=== PATIENT | female | born 1970 | race Caucasian/White ===

== ENCOUNTER 2017-11-28 01:21 | Observation (INO) | payer OTHER ==
[2017-11-28 03:07] LABS: Urine Blood 1+ (NEG); Urine Glucose NEGATIVE (NEG); Urine Protein NEGATIVE (NEG); Urine Specific Gravity <1.005 (1.005-1.030)
[2017-11-28 03:32] LABS: Absolute Monocytes 0.8 K/uL (0.1-1.3); Basophils % 0.7 % (0-1.3); Eosinophils % 1.5 % (0-4.4); Hematocrit 32.6 % (36.0-45.0); Lymphocytes % 15.6 % (15.3-44.8); MCH 20.7 pg (27.0-35.0); MCV 66.9 fL (80-100); MPV 8.6 fL (7.6-11.3); Monocytes % 6.4 % (3.3-12.3); RBC Red Blood Cell Count 4.87 M/uL (3.86-4.86)
[2017-11-28 03:45] LABS: Bicarbonate 26 mEq/L (21-31); Glucose Level 178 mg/dL (65-120); Lipase 35 U/L (22-51); Potassium 4.1 mEq/L (3.6-5.0); Sodium Level 135 mEq/L (135-145)
[2017-11-28] MEDS ORDERED: MORPHINE 4 MG/ML SYR ONE ×2 (03:46→06:56)
[2017-11-28] MEDS ORDERED: NA CHLORIDE 0.9% 1,000 ML ONE (03:47)
[2017-11-28] MEDS ORDERED: ONDANSETRON 4 MG/2 ML VIAL ONE (03:47)
[2017-11-28 03:52] LABS: ALT/SGPT 17 IU/L (10-60); AST/SGOT 24 IU/L (10-42); Albumin 3.9 g/dL (3.2-5.5); Alkaline Phosphatase 49 IU/L (42-121); Amylase Level 73 U/L (28-100); BUN Blood Urea Nitrogen 17 mg/dL (6-20); Bilirubin Direct 0.1 mg/dL (0-0.2); Bilirubin Total 0.6 mg/dL (0.3-1.2); Protein, Total 7.1 g/dL (6.0-8.3)
--- NOTE | 2017-11-28 06:36 | EDPHYS ---
Physician Documentation [facility] Name: Adelaide Acosta Age: 46 yrs Sex: Female : 1970 Arrival Date: 11/28/2017 Time: 01:29 Bed 6 Private MD: ED Physician Irving Nava HPI: 11/28 03:10 This 46 yrs old Female presents to ER via Ambulatory with complaints of pkl Abdominal Pain, Fever. 03:10 The patient presents with abdominal pain right lower quadrant. Onset: The pkl symptoms/episode began/occurred today, 9 hour(s) ago. The symptoms do not radiate. 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 - Social history:: Smoking status: Patient uses tobacco products, smokes one pack cigarettes per day. ROS: 03:10 Eyes: Negative for injury, pain, redness, and discharge, ENT: Negative for injury, pkl pain, and discharge, Neck: Negative for injury, pain, and swelling, Cardiovascular: Negative for chest pain, palpitations, and edema, Respiratory: Negative for shortness of breath, cough, wheezing, and pleuritic chest pain. 03:10 Abdomen/GI: Positive for abdominal pain, nausea, of the right lower quadrant. 03:10 Back: Negative for acute changes. 03:10 : Negative for urinary symptoms. 03:10 MS/extremity: Negative for acute changes. 03:10 Skin: Negative for rash. 03:10 Neuro: Negative for altered mental status. Exam: 03:10 Head/Face: Normocephalic, atraumatic. Eyes: Pupils equal round and reactive to light, pkl extra-ocular motions intact. Lids and lashes normal. Conjunctiva and sclera are non-icteric and not injected. Cornea within normal limits. Periorbital areas with no swelling, redness, or edema. ENT: Nares patent. No nasal discharge, no septal abnormalities noted. Tympanic membranes are normal and external auditory canals are clear. Oropharynx with no redness, swelling, or masses, exudates, or evidence of obstruction, uvula midline. Mucous membranes moist. Neck: Trachea midline, no thyromegaly or masses palpated, and no cervical lymphadenopathy. Supple, full range of motion without nuchal rigidity, or vertebral point tenderness. No Meningismus. Chest/axilla: Normal chest wall appearance and motion. Nontender with no deformity. No lesions are appreciated. Cardiovascular: Regular rate and rhythm with a normal S1 and S2. No gallops, murmurs, or rubs. Normal PMI, no JVD. No pulse deficits. Respiratory: Lungs have equal breath sounds bilaterally, clear to auscultation and percussion. No rales, rhonchi or wheezes noted. No increased work of breathing, no retractions or nasal flaring. 03:10 Abdomen/GI: Bowel sounds: normal, Palpation: soft, mild abdominal tenderness, in the right lower quadrant. 03:10 Back: Exam negative for acute changes. 03:10 : Exam negative for acute changes. 03:10 Musculoskeletal/extremity: Exam is negative for acute changes. 03:10 Skin: Exam negative for rash. 03:10 Neuro: Orientation: is normal, Mentation: is normal, Cranial nerves: grossly normal, Motor: is normal. Vital Signs: 02:02 BP 142 / 74; Pulse 105; Resp 20; Temp 98.6(O); Pulse Ox 98% on R/A; Weight 92.53 kg ak1 (R); Height 5 ft. 2 in. (157.48 cm) (R); Pain 5/10; 04:38 BP 100 / 62; Pulse 88; Resp 18; Pulse Ox 97% on R/A; ak1 05:09 BP 112 / 70; Pulse 88; Resp 18; Pulse Ox 97% on R/A; ak1 06:29 BP 119 / 82; Pulse 80; Resp 16; Temp 98.4; Pulse Ox 100% on R/A; Pain 0/10; ak1 06:51 BP 116 / 97; Pulse 77; Resp 16; Pulse Ox 97% on R/A; Pain 4/10; ak1 07:30 BP 122 / 78; Pulse 75; Resp 16; Temp 98.7; Pulse Ox 97% ; Pain 0/10; jl7 02:02 Body Mass Index 37.31 (92.53 kg, 157.48 cm) ak1 MDM: 01:57 Patient medically screened. pkl 06:14 Data reviewed: vital signs, nurses notes, lab test result(s), radiologic studies, CT pkl scan. 06:32 ED course: Talked to Dr. Fagan, admit, NPO and start antibiotics. pkl 11/28 01:30 Order name: Urine Culture snw 11/28 01:30 Order name: Urine Microscopic Only snw 11/28 02:21 Order name: Urine Dipstick--Ancillary (enter results); Complete Time: 05:06 em1 11/28 03:08 Order name: Amylase, Serum; Complete Time: 05:06 pkl 11/28 03:08 Order name: Basic Metabolic Panel; Complete Time: 05:06 pkl 11/28 03:08 Order name: CBC with Diff; Complete Time: 05:06 pkl 11/28 03:08 Order name: Creatinine for Radiology; Complete Time: 05:06 pkl 11/28 03:08 Order name: Hepatic Function; Complete Time: 05:06 pkl 11/28 03:08 Order name: Lipase; Complete Time: 05:06 pkl 11/28 03:10 Order name: CT Abd/Pelvis - W/Contrast pkl 11/28 06:31 Order name: XRAY CXR (1 view) pkl 11/28 06:49 Order name: Liver (Hepatic) Function EDMS 11/28 06:49 Order name: Liver (Hepatic) Function EDMS 11/28 01:30 Order name: Urine Dipstick-Ancillary (obtain specimen); Complete Time: 02:21 snw 11/28 03:08 Order name: IV Saline Lock; Complete Time: 03:51 pkl 11/28 03:08 Order name: Labs collected and sent; Complete Time: 03:51 pkl 11/28 06:31 Order name: EKG; Complete Time: 06:31 pkl Administered Medications: 03:40 Drug: morphine 2 mg Route: IVP; Site: right antecubital; ao 05:19 Follow up: Response: No adverse reaction ak1 03:51 Drug: Zofran 4 mg Route: IVP; Site: right antecubital; ao 05:19 Follow up: Response: No adverse reaction ak1 03:52 Drug: NS 0.9% 1000 ml Route: IV; Rate: 125 ml/hr; Site: left antecubital; ao 06:53 Drug: LevaQUIN 500 mg Volume: 100 ml; Route: IVPB; Infused Over: 60 mins; Site: right ao antecubital; 07:57 Follow up: IV Status: Completed infusion jl7 06:53 Drug: Flagyl 500 mg Volume: 100 ml; Route: IVPB; Rate: 200 ml/hr; Infused Over: 30 ao mins; Site: right antecubital; 07:57 Follow up: IV Status: Completed infusion jl7 07:00 Drug: morphine 2 mg Route: IVP; Site: right antecubital; ao 07:15 Follow up: Response: No adverse reaction; Pain is decreased jl7 Disposition: 11/28/17 06:35 Hospitalization ordered by Will Fagan for Observation. Preliminary diagnosis is Acute appendicitis. Cholelithiasis. - Bed requested for Telemetry/MedSurg (observation). - Status is Observation. jl7 - Condition is Stable. - Problem is new. - Symptoms are unchanged. UTI on Admission? No Signatures: Dispatcher [employer] EDMS Krissy Meredith RN RN Irving Hair MD MD pkl Rina Pineda, CONVEYOR WEIGHER OPERATOR-C CONVEYOR WEIGHER OPERATOR-Csnw Catherine Castanon RN LIZA ak1 Rui Martin, RN Milka Bunn RN RN jl7 Corrections: (The following items were deleted from the chart) 06:54 06:35 Hospitalization Ordered by Will Fagan MD for Observation. Preliminary kl diagnosis is Acute appendicitis. Cholelithiasis. Bed requested for Telemetry/MedSurg (observation). Status is Observation. Condition is Stable. Problem is new. Symptoms are unchanged. UTI on Admission? No. pkl 07:56 06:54 11/28/2017 06:35 Hospitalization Ordered by Will Fagan MD for Observation. jl7 Preliminary diagnosis is Acute appendicitis. Cholelithiasis. Bed requested for Telemetry/MedSurg (observation). Status is Observation. Condition is Stable. Problem is new. Symptoms are unchanged. UTI on Admission? No. kl
--- NOTE | 2017-11-28 06:36 | ER ---
Nurse's Notes [facility] Name: Adelaide Acosta Age: 46 yrs Sex: Female : 1970 Arrival Date: 11/28/2017 Time: 01:29 Bed 6 Private MD: Diagnosis: Acute appendicitis. Cholelithiasis Presentation: 11/28 02:02 Presenting complaint: Patient states: lower right quadrant pain since 1830. pt has been ak1 constipated had BM today. pt took 1 gram Tylenol at 2330. pt with hx lower abd hernia. pt with hx colon resection. pt c/o nausea. Transition of care: patient was not received from another setting of care. Onset of symptoms was November 27, 2017. Initial Sepsis Screen: Does the patient meet any 2 criteria? No. Patient's initial sepsis screen is negative. Does the patient have a suspected source of infection? No. Patient's initial sepsis screen is negative. Care prior to arrival: None. 02:02 Method Of Arrival: Ambulatory ak1 02:02 Acuity: MINNIE 3 ak1 Triage Assessment: 02:06 General: Appears in no apparent distress. Behavior is calm, cooperative. Pain: ak1 Complains of pain in right lower quadrant. EENT: No deficits noted. Neuro: No deficits noted. Cardiovascular: No deficits noted. Respiratory: No deficits noted. GI: Abdomen is round Bowel sounds present X 4 quads. Abd is soft X 4 quads Abdomen is tender to palpation in right lower quadrant Reports nausea. : No signs and/or symptoms were reported regarding the genitourinary system. Derm: No signs and/or symptoms reported regarding the dermatologic system. Musculoskeletal: No signs and/or symptoms reported regarding the musculoskeletal system. CONSULTING DATABASE ADMINISTRATOR: 02:02 LMP 11/28/2017 ak1 Historical: - Allergies: 02:06 Ampicillin; ak1 02:06 Reglan; ak1 - Home Meds: 02:06 easytime [Active]; metformin 500 mg Oral tab 1 tab 2 times per day [Active]; ak1 - PMHx: 02:06 Diabetes - NIDDM; High Cholesterol; ak1 - PSHx: 02:06 colon resection; ; ak1 - Immunization history:: Adult Immunizations unknown. - Social history:: Smoking status: Patient uses tobacco products, smokes one pack cigarettes per day. Screenin:07 Abuse screen: Denies threats or abuse. Denies injuries from another. Nutritional ak1 screening: No deficits noted. Tuberculosis screening: No symptoms or risk factors identified. Fall Risk None identified. Assessment: 03:46 Reassessment: Patient appears in no apparent distress at this time. No changes from ak1 previously documented assessment. see triage assessment. 03:46 Reassessment: pt finished oral contrast at 0330, painting technician notified . ak1 07:15 Reassessment: Patient and/or family updated on plan of care and expected duration. Pain jl7 level reassessed. Patient is alert, oriented x 3, equal unlabored respirations, skin warm/dry/pink. Patient states feeling better. Vital Signs: 02:02 BP 142 / 74; Pulse 105; Resp 20; Temp 98.6(O); Pulse Ox 98% on R/A; Weight 92.53 kg ak1 (R); Height 5 ft. 2 in. (157.48 cm) (R); Pain 5/10; 04:38 BP 100 / 62; Pulse 88; Resp 18; Pulse Ox 97% on R/A; ak1 05:09 BP 112 / 70; Pulse 88; Resp 18; Pulse Ox 97% on R/A; ak1 06:29 BP 119 / 82; Pulse 80; Resp 16; Temp 98.4; Pulse Ox 100% on R/A; Pain 0/10; ak1 06:51 BP 116 / 97; Pulse 77; Resp 16; Pulse Ox 97% on R/A; Pain 4/10; ak1 07:30 BP 122 / 78; Pulse 75; Resp 16; Temp 98.7; Pulse Ox 97% ; Pain 0/10; jl7 02:02 Body Mass Index 37.31 (92.53 kg, 157.48 cm) ak1 ED Course: 01:29 Patient arrived in ED. al2 01:57 Irving Nava MD is Attending Physician. pkl 02:01 Catherine Castanon, LIZA is Primary Nurse. ak1 02:04 Triage completed. ak1 02:06 Arm band placed on Patient placed in an exam room, on a stretcher, on pulse oximetry, ak1 Patient notified of wait time. 02:07 Patient has correct armband on for positive identification. Bed in low position. Call ak1 light in reach. Side rails up X 1. Adult w/ patient. Pulse ox on. NIBP on. 03:00 No provider procedures requiring assistance completed. Inserted saline lock: 20 gauge ak1 in right antecubital area, using aseptic technique. ,using aseptic technique. placed by Rui Castro RN Blood collected. 05:19 CT Abd/Pelvis - W/Contrast Sent. ak1 05:31 CT Abd/Pelvis - W/Contrast In Process Unspecified. EDMS 06:34 Will Fagan MD is Hospitalizing Provider. pkl 06:42 XRAY CXR (1 view) In Process Unspecified. EDMS 07:56 Patient admitted, IV remains in place. intact, No redness/swelling at site. jl7 Administered Medications: 03:40 Drug: morphine 2 mg Route: IVP; Site: right antecubital; ao 05:19 Follow up: Response: No adverse reaction ak1 03:51 Drug: Zofran 4 mg Route: IVP; Site: right antecubital; ao 05:19 Follow up: Response: No adverse reaction ak1 03:52 Drug: NS 0.9% 1000 ml Route: IV; Rate: 125 ml/hr; Site: left antecubital; ao 06:53 Drug: LevaQUIN 500 mg Volume: 100 ml; Route: IVPB; Infused Over: 60 mins; Site: right ao antecubital; 07:57 Follow up: IV Status: Completed infusion jl7 06:53 Drug: Flagyl 500 mg Volume: 100 ml; Route: IVPB; Rate: 200 ml/hr; Infused Over: 30 ao mins; Site: right antecubital; 07:57 Follow up: IV Status: Completed infusion jl7 07:00 Drug: morphine 2 mg Route: IVP; Site: right antecubital; ao 07:15 Follow up: Response: No adverse reaction; Pain is decreased jl7 Outcome: 06:35 Decision to Hospitalize by Provider. pkl 07:56 Admitted to Med/surg accompanied by tech, family with patient, via wheelchair, room jl7 230, with chart, Report called to LIZA Chun 07:56 Condition: stable 07:56 Discharge instructions given to patient, Instructed on the need for admit, Demonstrated understanding of instructions. 07:56 Patient left the ED. jl7 Signatures: Dispatcher [employer] EDAK Irving Nava MD MD pkCatherine Spangler RN RN ak1 Rui Martin, RN RN ao Sorin, Milka, RN RN jl7 Robyn Higuera
[2017-11-28] MEDS ORDERED: ACETAMINOPHEN 500 MG TAB PO PRN (06:41)
[2017-11-28] MEDS ORDERED: Levofloxacin500mg IV 500 MG/100 ML BAG IV ONE (06:46)
[2017-11-28] MEDS ORDERED: METRONIDAZOLE 500mg IVPB 500 MG/100 ML BAG IV ONE (06:46)
[2017-11-28] MEDS ORDERED: NA CHLORIDE 0.9% 1,000 ML IV SCH (07:00)
[2017-11-28] MEDS ORDERED: Morphine 2 MG/2 ML SYR IV PRN (07:08)
[2017-11-28 08:06] VITALS: O2SAT 97
[2017-11-28 10:54] VITALS: BMI 37.3
--- NOTE | 2017-11-28 11:34 | RAD REPORT ---
EXAM DESCRIPTION: CTAbdomen Pelvis W Contrast - 11/28/2017 6:42 am CLINICAL HISTORY: Abdominal pain. COMPARISON: None. TECHNIQUE: Biphasic CT imaging of the abdomen and pelvis was performed with 100 ml non-ionic IV cont rast. All CT scans are performed using dose optimization technique as appropriate and may include automated exposure control or mA/KV adjustment according to patient size. FINDINGS: The lung bases are clear.Cholelithiasis. The liver, spleen, pancreas, adrenal glands and kidneys are within normal limits. Small supraumbilica l fat containing ventral hernia is present. Moderate to large fat containing lower abdominal ventral hernia present with a 6 cm gap between the rectus musculature noted. No bowel obstruction, free air, free fluid or abscess. The appendix appears thickened and dilated to 10 mm. Periappendiceal fat is hazy. No evidence of significant lymphadenopathy. No suspicious bony findings. IMPRESSION: Acute appendicitis is suspected.
[2017-11-28] MEDS ORDERED: METRONIDAZOLE 500mg IVPB 500 MG/100 ML BAG IV SCH (12:00)
--- NOTE | 2017-11-28 12:14 | RAD REPORT ---
EXAM DESCRIPTION: RAD - Chest Single View - 11/28/2017 6:50 am CLINICAL HISTORY: Chest pain. COMPARISON: None. FINDINGS: Portable technique limits examination quality. The lungs are grossly clear. The heart is normal in size. No displaced fractures. IMPRESSION: No acute intrathoracic process suspected.
[2017-11-28 17:50] VITALS: BP 114/66; TEMP 98.1
--- NOTE | 2017-11-28 18:37 | HP ---
Date of Admission: 11/28/2017 Reason For Service: Abdominal pain. History Of Present Illness: This is the case of a 46-year-old with a history of colorectal cancer ab out 20 years ago when she was in her 20s. She has been on and off having some pain and discomfort. She had multiple hernias in abdomen, and then comes today with abdominal pain, a little different leslie n before, mainly located in the right side of the abdomen. No dysuria, hematuria, hematochezia, or m dustin. No recent traveling out of the country. No family members sick at home. She has a colonosco py several years ago, but she claimed was okay. Her colorectal surgery is no longer working. This w as done about 20 years ago. She cannot explain what cancer she had. She stated it was colorectum, h nataliia to say which segment of the bowel was removed. She believe this was descending colon and part of the rectum. She also lost contact with her oncologist and we have no documentation of the previous surgeries and the extent of it. When we did a CAT scan at this time we noticed some thickening of th e right lower quadrant. They are not sure if there is appendix thickening and dilatation is really n ot although it is always suspected. I discussed the case with the radiologist myself. Past Medical History: Colon cancer. Surgeries include colon resection and dissection. Past Medical History: Diabetes, non-insulin dependent; high cholesterol, morbid obesity, ventral her reggie. Allergies: AMPICILLIN AND REGLAN. Medications: Include metformin. Family History: Father with history of colon cancer. She does not smoke. She does not drink alcoho l. Review of Systems: Constitution: Denies any fever, any chills. Respiratory: Denies any shortness of breath cast. Genitourinary: Denies any dysuria or hematuria. Gastrointestinal: As above. Physical Examination: General: The patient is awake and alert. HEENT: Pupils are equal and reactive, anicteric. Neck: Supple. Chest: Clear. Abdomen: Soft and depressible. No guarding. No peritonitis, but she has mild pelvic and right lowe r quadrant tenderness. Rectal, Pelvic, Breast: Deferred Extremities: Good capillary refill. Laboratory Data: Blood work shows a WBC count of 13.1 with a hemoglobin of 10.1, potassium is 4.1 wi th a UA negative for blood. Diagnostic Data: CAT scan of abdomen and pelvis was reviewed and the chart reviewed also with the ra diologist. There are some findings in the right lower quadrant, a dilated more than usual appendix f rom some that could be called thickening of the appendix. He did not see any obstruction. Did not s ee any tumor in that area. On there is previous surgeries that is hard for us to pinpoint exactly ho w much bowel was removed. She has a large ventral hernias present, multiple incisional. Assessment: This is a 46-year-old patient with a history of colorectal cancer. Her family also had colorectal cancer, father itself. She had done surgery few days ago. It was in unusual presentation . I discussed the case with Dr. Young, Colorectal Surgery at [facility]. Even though this maybe looke d like a simple appendix, still we have a patient with history of colorectal disease and strong famil y history with parents with colorectal disease, and that was which was found in the unusual way. At this time, if we go in the belly and we cannot do this laparoscopically, it has to be opened, and if we find any a colorectal cancer, I believe she will be in the wrong place to have that done. I belie ve she needs a tertiary center with a lot of help just in case that remote possibility is encountered . I discussed that with the patient, and I also discussed that with the colorectal, and we believe s he is safer and the family is very happy that she is going to be going to a tertiary center since las t time she had surgery a that was supposed to be simple, found out to have colon cancer and that crea mariola a lot of stress in the family, and especially now that we have a situation once again not clear a nd they feels safer with the colorectal service taking care of her. In that case then we are going to bring this patient to a higher level of care with colorectal at [facility], and Dr. Young kindly accepted the patient. MIKE/PIPPA Voice ID: [id number]
--- NOTE | 2017-11-29 06:56 | EKG ---
Test Date: 2017-11-28 Test Time: 06:41:26 Speed Belt Sander: JOSE MEASUREMENT RESULTS: Intervals: Rate: 83 SD: 118 QRSD: 78 QT: 408 QTc: 479 [place]: P: 20 SD: 118 QRS: 43 T: 44 INTERPRETIVE STATEMENTS: Normal sinus rhythm Normal ECG No previous ECG available for comparison Electronically Signed On 11-29-17 06:53:53 CDT by Demetrio Thomas
[2017-11-29] MEDS ORDERED: Levofloxacin500mg IV 500 MG/100 ML BAG IV SCH (07:00)
== END 2017-11-28 16:09 | disposition short-term general hospital (02) ==
LOC: ER 01:21 → ERHOLD 06:38 → 2ND 07:39
PROVIDERS: ADMIT Surgery; ATTEND Surgery
DX: R10.9 Unspecified abdominal pain (principal); E11.9 Type 2 diabetes mellitus without complications; E66.01 Morbid (severe) obesity due to excess calories; Z68.37 Body mass index [BMI] 37.0-37.9, adult; K43.2 Incisional hernia without obstruction or gangrene; Z85.038 Personal history of other malignant neoplasm of large intestine; Z88.0 Allergy status to penicillin
CPT/HCPCS: 36415; 71045; 74177; 80048; 80076; 81003; 82150; 82962; 83690; 85025; 93005; 96365; 96368; 96375; 99285; G0378; J2270; J2405; J7030; Q9967

== ENCOUNTER 2019-07-24 18:35 | Emergency (ER) | payer OTHER ==
[2019-07-24 19:48] LABS: ALT/SGPT 28 U/L (12-78); AST/SGOT 12 U/L (15-37); Albumin 3.4 g/dL (3.4-5.0); Alkaline Phosphatase 84 U/L (45-117); BUN Blood Urea Nitrogen 9 mg/dL (7-18); Bicarbonate 27 mmol/L (21-32); Bilirubin Direct 0.1 mg/dL (0-0.2); Bilirubin Total 0.3 mg/dL (0.2-1.0); Glucose Level 270 mg/dL (74-106); Lipase 170 U/L (73-393); NT PRO-BNP 43 pg/mL (<125); Potassium 3.8 mmol/L (3.5-5.1); Protein, Total 7.5 g/dL (6.4-8.2); Sodium Level 136 mmol/L (136-145); Troponin (Emerg Dept Use Only) < 0.02 ng/mL (0.0-0.045)
[2019-07-24] MEDS ORDERED: MORPHINE 4 MG/ML SYR ONE (19:48)
[2019-07-24] MEDS ORDERED: ONDANSETRON 4 MG/2 ML VIAL ONE (19:48)
[2019-07-24] MEDS ORDERED: NA CHLORIDE 0.9% 1,000 ML ONE (19:48)
[2019-07-24 19:53] LABS: Basophils % 0.6 % (0-1.3); Hematocrit 31.6 % (36.0-45.0); Lymphocytes % 30.1 % (15.3-44.8); MPV 8.8 fL (7.6-11.3); RBC Red Blood Cell Count 5.07 M/uL (3.86-4.86)
[2019-07-24 20:04] LABS: Protime INR 0.96
[2019-07-24 20:30] LABS: Urine Blood TRACE (NEG); Urine Glucose 2+ (NEG); Urine Protein NEGATIVE (NEG); Urine pH 7.5 (5.0-7.0)
--- NOTE | 2019-07-24 20:50 | RAD REPORT ---
EXAM DESCRIPTION: Samuel Single View07/24/2019 7:37 pm CLINICAL HISTORY: Abdominal pain COMPARISON: 2017 FINDINGS: The lungs appear clear of acute infiltrate. The heart is normal size IMPRESSION: No acute abnormalities displayed
[2019-07-24 21:28] LABS: Anisocytosis 2+; Blood Morphology Comment NOTED (NOT SEEN); Hypochromasia 2+; Ovalocytes 1+; Platelet Estimate ADEQ; Poikilocytosis 1+; Polychromasia SLIGHT; Urine White Blood Cell Casts OK
--- NOTE | 2019-07-24 22:54 | ER ---
Nurse's Notes [facility] Name: Adelaide Acosta Age: 48 yrs Sex: Female : 1970 Arrival Date: 07/24/2019 Time: 18:39 Bed 18 Private MD: Diagnosis: Abdominal tenderness;Constipation;Ventral hernia;Ventral hernia without obstruction or gangrene Presentation: 07/24 18:46 Presenting complaint: Patient states: GI doctor with [facility] instructed her sg to come to an ER for evaluation due to pain in the right lower abdomen, reports having pain for 1-2 days, reports pain is stabbing feels like an ovarian rupture but unsure. Transition of care: patient was not received from another setting of care. Onset of symptoms was July 24, 2019. Risk Assessment: Do you want to hurt yourself or someone else? Patient reports no desire to harm self or others. Initial Sepsis Screen: Does the patient meet any 2 criteria? Does the patient have a suspected source of infection? No. Patient's initial sepsis screen is negative. Care prior to arrival: None. 18:46 Acuity: MINNIE 3 sg 18:46 Method Of Arrival: Ambulatory sg 18:46 Acuity: MINNIE 3 sg Triage Assessment: 18:46 General: Appears in no apparent distress. uncomfortable, well groomed, well developed, sg well nourished, Behavior is calm, cooperative, appropriate for age. Pain: Complains of pain in right lower quadrant Quality of pain is described as aching, sharp. EENT: No signs and/or symptoms were reported regarding the EENT system. Neuro: Level of Consciousness is awake, alert, obeys commands, Oriented to person, place, time, Induction Heat Treater are equal bilaterally Speech is normal, Facial symmetry appears normal. Cardiovascular: Patient's skin is warm and dry. Chest pain is denied. Respiratory: Airway is patent Respiratory effort is even, unlabored, Respiratory pattern is regular, symmetrical. GI: Abdomen is round non-distended, Reports tolerance of fluids, tolerance of food. : No signs and/or symptoms were reported regarding the genitourinary system. Derm: Skin is pink, warm \T\ dry. Musculoskeletal: Circulation, motion, and sensation intact. Range of motion: intact in all extremities. 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 - Social history:: Smoking status: Patient uses tobacco products. - Ebola Screening: : Patient negative for fever greater than or equal to 101.5 degrees Fahrenheit, and additional compatible Ebola Virus Disease symptoms Patient denies exposure to infectious person Patient denies travel to an Ebola-affected area in the 21 days before illness onset No symptoms or risks identified at this time. - Family history:: not pertinent. Screenin:00 Abuse screen: Denies threats or abuse. Nutritional screening: No deficits noted. vc Tuberculosis screening: No symptoms or risk factors identified. Fall Risk No fall in past 12 months (0 pts). IV access (20 points). Ambulatory Aid- None/Bed Rest/Nurse Assist (0 pts). Mental Status- Oriented to own ability (0 pts). Total Epstein Fall Scale indicates No Risk (0-24 pts). Assessment: 19:30 GI: Bowel sounds Abd is soft Abdomen is tender to palpation. vc 19:30 General: Appears in no apparent distress. comfortable, Behavior is calm, cooperative. vc Pain: Complains of pain in abdomen Pain currently is 3 out of 10 on a pain scale. Neuro: No deficits noted. Level of Consciousness is awake, alert, obeys commands, Oriented to person, place, time. Cardiovascular: Capillary refill < 3 seconds Patient's skin is warm and dry. Respiratory: Airway is patent Respiratory effort is even, unlabored. : No signs and/or symptoms were reported regarding the genitourinary system. EENT: No deficits noted. Derm: Skin is healthy with good turgor. Musculoskeletal: Range of motion: intact in all extremities. 20:30 Reassessment: Patient is alert, oriented x 3, equal unlabored respirations, skin vc warm/dry/pink. Patient denies pain at this time. 21:25 Reassessment: Patient to CT via wheelchair. vc 21:43 Reassessment: Back from CT. vc 22:30 Reassessment: Patient and/or family updated on plan of care and expected duration. Pain vc level reassessed. Patient is alert, oriented x 3, equal unlabored respirations, skin warm/dry/pink. 23:30 Reassessment: Patient given pain medication to help with pain on ride home, patients vc friend at bedside to give patient ride home. Vital Signs: 18:50 BP 155 / 86; Pulse 98; Resp 18; Temp 98.0; Pulse Ox 100% on R/A; Pain 10/10; sg 19:30 BP 154 / 92; Pulse 96; Resp 18; Pulse Ox 100% on R/A; Pain 3/10; vc 20:15 BP 126 / 86; Pulse 88; Resp 18; Pulse Ox 99% on R/A; Pain 5/10; vc 21:00 BP 138 / 82; Pulse 91; Resp 18; Pulse Ox 100% on R/A; Pain 3/10; vc 22:00 BP 119 / 49; Pulse 99; Resp 16; Pulse Ox 99% on R/A; Pain 3/10; vc 23:00 BP 114 / 54; Pulse 96; Resp 18; Temp 98.8(TE); Pulse Ox 99% on R/A; Pain 0/10; vc ED Course: 18:39 Patient arrived in ED. mr 18:46 Arm band placed on. sg 18:50 Triage completed. sg 19:00 J Luis Hutchison MD is Attending Physician. [facility] 19:00 Patient has correct armband on for positive identification. Bed in low position. Call vc light in reach. 19:16 Inserted saline lock: 20 gauge in right antecubital area, using aseptic technique. mw2 Blood collected. 19:37 XRAY Chest (1 view) In Process Unspecified. EDMS 20:39 Bertha Camp, RN is Primary Nurse. vc 22:07 CT Abd/Pelvis - PO and IV Contrast In Process Unspecified. EDMS 23:46 No provider procedures requiring assistance completed. IV discontinued, intact, vc bleeding controlled, No redness/swelling at site. Pressure dressing applied. Administered Medications: 20:15 Drug: NS 0.9% 1000 ml Route: IV; Rate: 1 bolus; Site: right forearm; vc 23:30 Drug: morphine 4 mg Route: IVP; Site: right antecubital; vc 23:35 Follow up: Response: No adverse reaction; Pain is decreased vc 23:30 Drug: Zofran 4 mg Route: IVP; Site: right forearm; vc 23:35 Follow up: Response: No adverse reaction; Pain is decreased vc Outcome: 22:53 Discharge ordered by . manny 23:46 Discharged to home ambulatory. vc 23:46 Condition: improved 23:46 Discharge instructions given to patient, friend, Instructed on discharge instructions, follow up and referral plans. no drinking with medication, medication usage, Demonstrated understanding of instructions, follow-up care, medications, Prescriptions given X 3. 23:47 Patient left the ED. vc Signatures: Dispatcher [employer] EDMS Gab Ball, RN RN J Luis Arias MD MD cha Rivera, Mary mr Vinay, Katya mw2 Bertha Camp RN RN
--- NOTE | 2019-07-24 22:54 | EDPHYS ---
Physician Documentation [facility] Name: Adelaide Acosta Age: 48 yrs Sex: Female : 1970 Arrival Date: 07/24/2019 Time: 18:39 Bed 18 Private MD: ED Physician J Luis Hutchison HPI: 07/24 20:03 This 48 yrs old Female presents to ER via Ambulatory with complaints of manny Abdominal Pain. 20:03 The patient presents with abdominal pain in the lower abdomen, right lower quadrant, manny abdominal distention in the upper abdomen, in the lower abdomen. Onset: The symptoms/episode began/occurred 2 day(s) ago. The symptoms do not radiate. Associated signs and symptoms: none. The symptoms are described as constant, crampy, stabbing. Modifying factors: The symptoms are alleviated by nothing, remaining still, the symptoms are aggravated by movement, pressure. Severity of pain: At its worst the pain was moderate in the emergency department the pain is unchanged. The patient has not experienced similar symptoms in the past. 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 - Social history:: Smoking status: Patient uses tobacco products. - Ebola Screening: : Patient negative for fever greater than or equal to 101.5 degrees Fahrenheit, and additional compatible Ebola Virus Disease symptoms Patient denies exposure to infectious person Patient denies travel to an Ebola-affected area in the 21 days before illness onset No symptoms or risks identified at this time. - Family history:: not pertinent. ROS: 20:03 Constitutional: Negative for fever, chills, and weight loss, Eyes: Negative for injury, manny pain, redness, and discharge, ENT: Negative for injury, pain, and discharge, Neck: Negative for injury, pain, and swelling, Cardiovascular: Negative for chest pain, palpitations, and edema, Respiratory: Negative for shortness of breath, cough, wheezing, and pleuritic chest pain, Back: Negative for injury and pain, : Negative for injury, bleeding, discharge, and swelling, MS/Extremity: Negative for injury and deformity, Skin: Negative for injury, rash, and discoloration, Neuro: Negative for headache, weakness, numbness, tingling, and seizure, Psych: Negative for depression, anxiety, suicide ideation, homicidal ideation, and hallucinations, Allergy/Immunology: Negative for hives, rash, and allergies, Endocrine: Negative for neck swelling, polydipsia, polyuria, polyphagia, and marked weight changes, Hematologic/Lymphatic: Negative for swollen nodes, abnormal bleeding, and unusual bruising. 20:03 Abdomen/GI: Positive for abdominal pain, constipation, abdominal distension, of the right lower quadrant. Exam: 20:03 Constitutional: This is a well developed, well nourished patient who is awake, alert, manny and in no acute distress. Head/Face: Normocephalic, atraumatic. Eyes: Pupils equal round and reactive to light, extra-ocular motions intact. Lids and lashes normal. Conjunctiva and sclera are non-icteric and not injected. Cornea within normal limits. Periorbital areas with no swelling, redness, or edema. ENT: Nares patent. No nasal discharge, no septal abnormalities noted. Tympanic membranes are normal and external auditory canals are clear. Oropharynx with no redness, swelling, or masses, exudates, or evidence of obstruction, uvula midline. Mucous membranes moist. Neck: Trachea midline, no thyromegaly or masses palpated, and no cervical lymphadenopathy. Supple, full range of motion without nuchal rigidity, or vertebral point tenderness. No Meningismus. Chest/axilla: Normal chest wall appearance and motion. Nontender with no deformity. No lesions are appreciated. Cardiovascular: Regular rate and rhythm with a normal S1 and S2. No gallops, murmurs, or rubs. Normal PMI, no JVD. No pulse deficits. Respiratory: Lungs have equal breath sounds bilaterally, clear to auscultation and percussion. No rales, rhonchi or wheezes noted. No increased work of breathing, no retractions or nasal flaring. Back: No spinal tenderness. No costovertebral tenderness. Full range of motion. Female : Normal external genitalia. Skin: Warm, dry with normal turgor. Normal color with no rashes, no lesions, and no evidence of cellulitis. MS/ Extremity: Pulses equal, no cyanosis. Neurovascular intact. Full, normal range of motion. Neuro: Awake and alert, GCS 15, oriented to person, place, time, and situation. Cranial nerves II-XII grossly intact. Motor strength 5/5 in all extremities. Sensory grossly intact. Cerebellar exam normal. Normal gait. 20:03 Abdomen/GI: Inspection: distension, that is moderate, Bowel sounds: active, Palpation: moderate abdominal tenderness, in the right lower quadrant, Liver: no appreciated palpable abnormalities, Hernia: not appreciated. Vital Signs: 18:50 BP 155 / 86; Pulse 98; Resp 18; Temp 98.0; Pulse Ox 100% on R/A; Pain 10/10; sg 19:30 BP 154 / 92; Pulse 96; Resp 18; Pulse Ox 100% on R/A; Pain 3/10; vc 20:15 BP 126 / 86; Pulse 88; Resp 18; Pulse Ox 99% on R/A; Pain 5/10; vc 21:00 BP 138 / 82; Pulse 91; Resp 18; Pulse Ox 100% on R/A; Pain 3/10; vc 22:00 BP 119 / 49; Pulse 99; Resp 16; Pulse Ox 99% on R/A; Pain 3/10; vc 23:00 BP 114 / 54; Pulse 96; Resp 18; Temp 98.8(TE); Pulse Ox 99% on R/A; Pain 0/10; vc MDM: 19:00 Patient medically screened. [facility] 20:06 Data reviewed: vital signs, nurses notes, lab test result(s), EKG, radiologic studies, [facility] CT scan, plain films. 07/24 19:05 Order name: Basic Metabolic Panel; Complete Time: 20:01 [facility] 07/24 19:05 Order name: CBC with Diff; Complete Time: 22:06 [facility] 07/24 19:05 Order name: LFT's; Complete Time: 20:01 [facility] 07/24 19:05 Order name: Magnesium; Complete Time: 20:01 [facility] 07/24 19:05 Order name: NT PRO-BNP; Complete Time: 20:01 [facility] 07/24 19:05 Order name: PT-INR; Complete Time: 20:44 [facility] 07/24 19:05 Order name: Troponin (emerg Dept Use Only); Complete Time: 20:01 [facility] 07/24 19:05 Order name: XRAY Chest (1 view); Complete Time: 22:06 [facility] 07/24 19:05 Order name: Lipase; Complete Time: 20:01 [facility] 07/24 19:05 Order name: CT Abd/Pelvis - PO and IV Contrast [facility] 07/24 19:27 Order name: Urine Dipstick--Ancillary (enter results); Complete Time: 20:44 [facility] 07/24 19:27 Order name: Urine --Ancillary (enter results); Complete Time: 20:44 [facility] 07/24 21:29 Order name: CBC Smear Scan; Complete Time: 22:06 [facility] 07/24 19:05 Order name: EKG; Complete Time: 19:06 [facility] 07/24 19:05 Order name: Cardiac monitoring; Complete Time: 19:31 [facility] 07/24 19:05 Order name: EKG - Nurse/Tech; Complete Time: 19:31 [facility] 07/24 19:05 Order name: IV Saline Lock; Complete Time: 19:28 [facility] 07/24 19:05 Order name: Labs collected and sent; Complete Time: 19:31 [facility] 07/24 19:05 Order name: O2 Per Protocol; Complete Time: 19:31 [facility] 07/24 19:05 Order name: O2 Sat Monitoring; Complete Time: 19:32 [facility] 07/24 19:05 Order name: Urine Dipstick-Ancillary (obtain specimen); Complete Time: 19:25 [facility] 07/24 19:05 Order name: Urine Test (obtain specimen); Complete Time: 19:24 [facility] Administered Medications: 20:15 Drug: NS 0.9% 1000 ml Route: IV; Rate: 1 bolus; Site: right forearm; vc 23:30 Drug: morphine 4 mg Route: IVP; Site: right antecubital; vc 23:35 Follow up: Response: No adverse reaction; Pain is decreased vc 23:30 Drug: Zofran 4 mg Route: IVP; Site: right forearm; vc 23:35 Follow up: Response: No adverse reaction; Pain is decreased vc Disposition: 07/24/19 22:53 Discharged to Home. Impression: Abdominal tenderness, Constipation, Ventral hernia, Ventral hernia without obstruction or gangrene. - Condition is Stable. - Discharge Instructions: Abdominal Pain, Adult, Constipation, Adult, Constipation, Adult, [id number], Abdominal Pain, Adult, [id number], Ventral Hernia. - Prescriptions for Bentyl 20 mg Oral Tablet - take 1 tablet by ORAL route every 6 hours As needed; 20 tablet. Colace 100 mg Oral Tablet - take 1 tablet by ORAL route every 12 hours; 14 tablet. Tylenol- Codeine #3 300-30 mg Oral Tablet - take 2 tablets by ORAL route every 6 hours As needed; 20 tablet. - Medication Reconciliation Form, Thank You Letter, Antibiotic Education, Prescription Opioid Use form. - Follow up: Private Physician; When: 2 - 3 days; Reason: Recheck today's complaints, Continuance of care, Re-evaluation by your physician. - Problem is new. - Symptoms have improved. Signatures: Dispatcher [employer] EDMS Gab Ball RN RN J Luis Arias MD MD cha Calcote, Vanessa, RN RN vc Corrections: (The following items were deleted from the chart) 23:47 22:53 07/24/2019 22:53 Discharged to Home. Impression: Abdominal tenderness; vc Constipation; Ventral hernia; Ventral hernia without obstruction or gangrene. Condition is Stable. Forms are Medication Reconciliation Form, Thank You Letter, Antibiotic Education, Prescription Opioid Use. Follow up: Private Physician; When: 2 - 3 days; Reason: Recheck today's complaints, Continuance of care, Re-evaluation by your physician. Problem is new. Symptoms have improved. manny
[2019-07-25 01:49] VITALS: BP 155/86; TEMP 98; O2SAT 100
--- NOTE | 2019-07-25 14:07 | EKG ---
Test Date: 2019-07-24 Test Time: 19:38:08 Varnish Melter Helper: APRIL MEASUREMENT RESULTS: Intervals: Rate: 96 WV: 128 QRSD: 76 QT: 362 QTc: 457 [place]: P: 57 WV: 128 QRS: 97 T: 30 INTERPRETIVE STATEMENTS: Normal sinus rhythm Possible Left atrial enlargement Rightward axis Cannot rule out Anterior infarct, age undetermined Abnormal ECG Compared to ECG 11/28/2017 06:41:26 Right-axis deviation now present Myocardial infarct finding now present Electronically Signed On 07-25-19 14:06:07 REGISTRATION REPRESENTATIVE by Demetrio Thomas
--- NOTE | 2019-07-27 12:27 | RAD REPORT ---
EXAM DESCRIPTION: CT - Abdomen Pelvis W Contrast - 07/24/2019 11:09 pm - Abdomen Pelvis W Contrast CLINICAL HISTORY: Right lower quadrant pain. TECHNIQUE: CT scan of the abdomen and pelvis was performed with oral and intravenous contrast. 5 mm arterial phase images of the abdomen were obtained. 5 mm venous phase axial images of the abdomen and pelvis were obtained along with coronal and sagitta l reformatted images. DOSE OPTIMIZATION: This facility uses dose optimization techniques as appropriate to perform exams, including at least one of the following techniques: 1. Automated exposure control. 2. Adjustment of the mA and/or kV according to patient size (this includes techniques or standardized protocols for targeted exams where dose is matched to the indication/reason for exam, i.e. extremiti es or head). 3. Use of iterative reconstructive technique. INTRAVENOUS AND ORAL CONTRAST: Not documented. Please refer to medical record. COMPARISON: 11/28/2017. FINDINGS: Lung Bases: Normal. Liver: Normal. Spleen: Normal. Pancreas: Normal. Gallbladder: Normal. Adrenal Glands: Normal. Kidneys: Normal. Retroperitoneal Structures: Normal. Bowel Survey: There is increased stool throughout the colon. The distal ileum and the appendix are un remarkable. Uterus and Adnexa: Normal. Urinary Bladder: Normal. Peritoneal Cavity: Normal. Mesenteric Structures: Normal. Abdominal Wall: There is a large midline ventral hernia containing fat in the anterior pelvic wall just inferior to t he umbilicus which is stable. The fascial defect measures 6.3 x 6.0 cm in maximal transverse and longitudinal dimensions respective ly. There is a series of 3 small ventral midline hernias in the anterior abdominal wall superior to the u mbilicus containing fat. The most superior hernia arises a cm above the umbilicus. The most inferior hernia arises 4 cm above the umbilicus. Bony Structures: No suspicious lesions. There is severe facet arthropathy bilaterally at L4-L5 and L5-S1. IMPRESSION: 1. Increased stool throughout the colon. 2. 3 small abdominal wall ventral hernias 1 large pelvic wall ventral hernia, stable. Electronically signed by: Dimitri Cummins MD 07/24/2019 10:22 PM AUTOMOTIVE ALIGNMENT SPECIALIST Due to temporary technical issues with the PACS/Fluency reporting system, reports are being signed by the in house radiologist as a courtesy to ensure prompt reporting. The interpreting radiologist is f ully responsible for the content of the report.
== END 2019-07-24 23:47 | disposition home or self-care (01) ==
LOC: ER 18:35
DX: K59.00 Constipation, unspecified (principal); K43.9 Ventral hernia without obstruction or gangrene; Z72.0 Tobacco use; Z88.1 Allergy status to other antibiotic agents; Z88.8 Allergy status to other drugs, medicaments and biological substances
CPT/HCPCS: 93005; 85025; 80048; 36415; 83735; 81025; 85610; 80076; 81003; 84484; 83690; 83880; 74177; 71045; 99284; Q9967; J7030; J2405

== ENCOUNTER 2020-09-07 14:53 | Emergency (ER) | payer BC, OTHER ==
[2020-09-07] MEDS ORDERED: IBUPROFEN 400 MG TAB ONE (16:01)
--- NOTE | 2020-09-07 16:13 | RAD REPORT ---
EXAM DESCRIPTION: RAD - Foot Left 3 View - 09/07/2020 4:01 pm CLINICAL HISTORY: PAIN COMPARISON: No comparisons FINDINGS: Minimal bony avulsion is likely present along the base of the fifth metatarsal. Elsewhere, no acute fracture or dislocation present. Large posterior calcaneal spur noted.
--- NOTE | 2020-09-07 16:44 | ER ---
Nurse's Notes [facility] Name: Adelaide Acosta Age: 49 yrs Sex: Female : 1970 Arrival Date: 09/07/2020 Time: 14:58 Bed 13 Private MD: Diagnosis: Other sprain of left foot-ligamentous;Nondisplaced fracture of fifth metatarsal bone, left foot-minimal bony avulsion, base 5th metatarsal Presentation: 09/07 15:17 Chief complaint: Patient states: Left foot pain for 1 week. Ran today and suddenly felt ll1 sharp pain to L lateral foot. Slow gait. Coronavirus screen: Client denies travel out of the [place] in the last 14 days. At this time, the client does not indicate any symptoms associated with coronavirus-19. Ebola Screen: Patient denies travel to an Ebola-affected area in the 21 days before illness onset. Initial Sepsis Screen: Does the patient meet any 2 criteria? HR > 90 bpm. No. Patient's initial sepsis screen is negative. Does the patient have a suspected source of infection? Yes: Bone or joint infection. Risk Assessment: Do you want to hurt yourself or someone else? Patient reports no desire to harm self or others. Onset of symptoms was August 31, 2020. 15:17 Method Of Arrival: Ambulatory ll1 15:17 Acuity: MINNIE 3 ll1 Historical: - Allergies: 15:17 Ampicillin; ll1 15:17 Reglan; ll1 - PMHx: 15:17 High Cholesterol; Diabetes - NIDDM; Hypertension; ll1 - PSHx: 15:17 ; colon resection; ll1 - Immunization history:: Flu vaccine is not up to date. - Social history:: Smoking status: Patient reports the use of cigarette tobacco products, smokes one pack cigarettes per day. - Family history:: not pertinent. Screenin:41 Abuse screen: Denies threats or abuse. Nutritional screening: No deficits noted. vg1 Tuberculosis screening: No symptoms or risk factors identified. Fall Risk No fall in past 12 months (0 pts). No secondary diagnosis (0 pts). No IV (0 pts). Ambulatory Aid- None/Bed Rest/Nurse Assist (0 pts). Gait- Normal/Bed Rest/Wheelchair (0 pts) Mental Status- Oriented to own ability (0 pts). Total Epstein Fall Scale indicates No Risk (0-24 pts). Assessment: 15:38 General: Appears in no apparent distress. comfortable, Behavior is calm, cooperative. vg1 Pain: Complains of pain in left foot Pain currently is 2 out of 10 on a pain scale. at worst was 7 out of 10 on a pain scale. Pain began 2 hours ago. Alleviated by rest, Aggravated by weight bearing. Neuro: Level of Consciousness is awake, alert, obeys commands, Oriented to person, place, time. Cardiovascular: Pulses are palpable in right dorsalis pedis artery and left dorsalis pedis artery. Respiratory: Airway is patent Respiratory effort is even, unlabored. GI: No signs and/or symptoms were reported involving the gastrointestinal system. : No signs and/or symptoms were reported regarding the genitourinary system. EENT: No signs and/or symptoms were reported regarding the EENT system. Derm: Skin is intact, is healthy with good turgor. Musculoskeletal: Circulation, motion, and sensation intact. Vital Signs: 15:17 BP 149 / 76; Pulse 94; Resp 17; Temp 98.6; Pulse Ox 99% ; Weight 92.08 kg; Height 5 ft. ll1 2 in. (157.48 cm); Pain 7/10; 15:41 BP 145 / 80; Pulse 97; Resp 16; Pulse Ox 100% on R/A; vg1 15:17 Body Mass Index 37.13 (92.08 kg, 157.48 cm) ll1 ED Course: 14:58 Patient arrived in ED. mr 15:16 Arm band placed on Patient placed in an exam room, on a stretcher. ll1 15:19 Triage completed. ll1 15:20 J Luis Hutchison MD is Attending Physician. manny 15:27 Jenny Guidry, RN is Primary Nurse. vg1 15:41 Patient has correct armband on for positive identification. Bed in low position. Call vg1 light in reach. Side rails up X 1. 16:01 Foot Left 3 View XRAY In Process Unspecified. EDMS 16:41 Jesus Alberto Hernandez MD is Referral Physician. manny 16:59 No provider procedures requiring assistance completed. Patient did not have IV access vg1 during this emergency room visit. Administered Medications: 15:47 Drug: Motrin 400 mg Route: PO; vg1 16:35 Follow up: Response: No adverse reaction vg1 Outcome: 16:44 Discharge ordered by . manny 16:59 Discharged to home ambulatory. vg1 16:59 Condition: stable 16:59 Discharge instructions given to patient, Instructed on discharge instructions, follow up and referral plans. medication usage, Demonstrated understanding of instructions, follow-up care, medications, Prescriptions given X 1. 16:59 Patient left the ED. vg1 Signatures: Dispatcher [employer] EDMS J Luis Hutchison MD MD cha Rivera, Mary mr Garcia, Victoria, RN RN vg1 Jj Meredith RN RN 1
--- NOTE | 2020-09-07 16:44 | EDPHYS ---
Physician Documentation [facility] Name: Adelaide Acosta Age: 49 yrs Sex: Female : 1970 Arrival Date: 09/07/2020 Time: 14:58 Bed 13 Private MD: ED Physician J Luis Hutchison HPI: 09/07 15:42 This 49 yrs old Female presents to ER via Ambulatory with complaints of Foot manny Pain, Feet Swelling. 15:42 The patient presents with decreased range of motion, pain, that is acute. The manny complaints affect the left foot. Context: The problem was sustained outdoors. Onset: The symptoms/episode began/occurred just prior to arrival. Modifying factors: The symptoms are alleviated by elevation of extremity, ice packs, sitting, the symptoms are aggravated by weight bearing, movement, wearing shoes. Associated signs and symptoms: Pertinent positives:. Severity of symptoms: At their worst the symptoms were mild, in the emergency department the symptoms are unchanged. The patient has not experienced similar symptoms in the past. Historical: - Allergies: 15:17 Ampicillin; ll1 15:17 Reglan; ll1 - PMHx: 15:17 High Cholesterol; Diabetes - NIDDM; Hypertension; ll1 - PSHx: 15:17 ; colon resection; ll1 - Immunization history:: Flu vaccine is not up to date. - Social history:: Smoking status: Patient reports the use of cigarette tobacco products, smokes one pack cigarettes per day. - Family history:: not pertinent. ROS: 15:42 Constitutional: Negative for fever, chills, and weight loss, Eyes: Negative for injury, manny pain, redness, and discharge, ENT: Negative for injury, pain, and discharge, Neck: Negative for injury, pain, and swelling, Cardiovascular: Negative for chest pain, palpitations, and edema, Respiratory: Negative for shortness of breath, cough, wheezing, and pleuritic chest pain, Abdomen/GI: Negative for abdominal pain, nausea, vomiting, diarrhea, and constipation, Back: Negative for injury and pain, : Negative for injury, bleeding, discharge, and swelling, Skin: Negative for injury, rash, and discoloration, Neuro: Negative for headache, weakness, numbness, tingling, and seizure, Psych: Negative for depression, anxiety, suicide ideation, homicidal ideation, and hallucinations, Allergy/Immunology: Negative for hives, rash, and allergies, Endocrine: Negative for neck swelling, polydipsia, polyuria, polyphagia, and marked weight changes, Hematologic/Lymphatic: Negative for swollen nodes, abnormal bleeding, and unusual bruising. 15:42 MS/extremity: Positive for decreased range of motion, pain, swelling, of the lateral side of left foot and lateral side of left heel. Exam: 15:42 Constitutional: This is a well developed, well nourished patient who is awake, alert, manny and in no acute distress. Head/Face: Normocephalic, atraumatic. Eyes: Pupils equal round and reactive to light, extra-ocular motions intact. Lids and lashes normal. Conjunctiva and sclera are non-icteric and not injected. Cornea within normal limits. Periorbital areas with no swelling, redness, or edema. ENT: Nares patent. No nasal discharge, no septal abnormalities noted. Tympanic membranes are normal and external auditory canals are clear. Oropharynx with no redness, swelling, or masses, exudates, or evidence of obstruction, uvula midline. Mucous membranes moist. Neck: Trachea midline, no thyromegaly or masses palpated, and no cervical lymphadenopathy. Supple, full range of motion without nuchal rigidity, or vertebral point tenderness. No Meningismus. Chest/axilla: Normal chest wall appearance and motion. Nontender with no deformity. No lesions are appreciated. Cardiovascular: Regular rate and rhythm with a normal S1 and S2. No gallops, murmurs, or rubs. Normal PMI, no JVD. No pulse deficits. Respiratory: Lungs have equal breath sounds bilaterally, clear to auscultation and percussion. No rales, rhonchi or wheezes noted. No increased work of breathing, no retractions or nasal flaring. Abdomen/GI: Soft, non-tender, with normal bowel sounds. No distension or tympany. No guarding or rebound. No evidence of tenderness throughout. Back: No spinal tenderness. No costovertebral tenderness. Full range of motion. Skin: Warm, dry with normal turgor. Normal color with no rashes, no lesions, and no evidence of cellulitis. Neuro: Awake and alert, GCS 15, oriented to person, place, time, and situation. Cranial nerves II-XII grossly intact. Motor strength 5/5 in all extremities. Sensory grossly intact. Cerebellar exam normal. Normal gait. Psych: Awake, alert, with orientation to person, place and time. Behavior, mood, and affect are within normal limits. 15:42 Musculoskeletal/extremity: ROM: full passive range of motion, limited active range of motion, in the lateral side of left foot and lateral side of left heel, Circulation is intact in all extremities. Sensation intact. Compartment Syndrome exam of affected extremity: is normal. DVT Exam: no swelling, negative Homans' sign noted on exam, no appreciated bluish discoloration, no erythema, no increased warmth, pain, tenderness. Vital Signs: 15:17 BP 149 / 76; Pulse 94; Resp 17; Temp 98.6; Pulse Ox 99% ; Weight 92.08 kg; Height 5 ft. ll1 2 in. (157.48 cm); Pain 7/10; 15:41 BP 145 / 80; Pulse 97; Resp 16; Pulse Ox 100% on R/A; vg1 15:17 Body Mass Index 37.13 (92.08 kg, 157.48 cm) ll1 MDM: 15:20 Patient medically screened. [facility] 09/07 15:41 Order name: Foot Left 3 View XRAY; Complete Time: 16:39 [facility] Administered Medications: 15:47 Drug: Motrin 400 mg Route: PO; vg1 16:35 Follow up: Response: No adverse reaction vg1 Disposition: 09/07/20 16:44 Discharged to Home. Impression: Other sprain of left foot - ligamentous, Nondisplaced fracture of fifth metatarsal bone, left foot - minimal bony avulsion, base 5th metatarsal. - Condition is Stable. - Discharge Instructions: Foot Sprain, Avulsion Fracture of the Foot, Foot Pain. - Prescriptions for Ibuprofen 600 mg Oral Tablet - take 1 tablet by ORAL route every 8 hours As needed take with food; 21 tablet. - Medication Reconciliation Form, Thank You Letter, Antibiotic Education, Prescription Opioid Use form. - Follow up: Private Physician; When: 2 - 3 days; Reason: Recheck today's complaints, Continuance of care, Re-evaluation by your physician. Follow up: Jesus Alberto Hernandez; When: 2 - 3 days; Reason: Recheck today's complaints, Re-evaluation by your physician. - Problem is new. - Symptoms have improved. Signatures: Dispatcher [employer] EDJ Luis Baez MD MD cha Garcia, Victoria, RN RN vg1 Jj Meredith RN RN ll1 Corrections: (The following items were deleted from the chart) 16:59 16:44 09/07/2020 16:44 Discharged to Home. Impression: Other sprain of left foot - vg1 ligamentous; Nondisplaced fracture of fifth metatarsal bone, left foot - minimal bony avulsion, base 5th metatarsal. Condition is Stable. Discharge Instructions: Foot Sprain, Foot Pain. Prescriptions for Ibuprofen 600 mg Oral Tablet - take 1 tablet by ORAL route every 8 hours As needed take with food; 21 tablet. and Forms are Medication Reconciliation Form, Thank You Letter, Antibiotic Education, Prescription Opioid Use. Follow up: Private Physician; When: 2 - 3 days; Reason: Recheck today's complaints, Continuance of care, Re-evaluation by your physician. Follow up: Jesus Alberto Hernandez; When: 2 - 3 days; Reason: Recheck today's complaints, Re-evaluation by your physician. Problem is new. Symptoms have improved. manny
[2020-09-07 17:03] VITALS: TEMP 98.6
[2020-09-07 17:05] VITALS: BP 145/80; O2SAT 100
== END 2020-09-07 16:59 | disposition home or self-care (01) ==
LOC: ER 14:53
DX: S92.355A Nondisplaced fracture of fifth metatarsal bone, left foot, initial encounter for closed fracture (principal); S93.692A Other sprain of left foot, initial encounter; X58.XXXA Exposure to other specified factors, initial encounter; Y93.02 Activity, running; Y92.89 Other specified places as the place of occurrence of the external cause; I10 Essential (primary) hypertension; F17.210 Nicotine dependence, cigarettes, uncomplicated; Z88.1 Allergy status to other antibiotic agents; Z88.8 Allergy status to other drugs, medicaments and biological substances
CPT/HCPCS: 99283